=== PATIENT | male | born 1955 ===

== ENCOUNTER 2022-05-25 09:42 | Emergency (ER) | payer MEDICARE, SELFPAY ==
--- NOTE | 2022-05-25 09:44 | ED.WOUNDLAC ---
HPI - Wound/Laceration General Chief Complaint: Wound/Laceration Stated Complaint: Right Finger Laceration Time Seen by Provider: 05/25/22 09:54 Source: patient and RN notes reviewed Mode of arrival: ambulatory Limitations: no limitations History of Present Illness HPI narrative: 66-year-old male presents to the [facility] with a laceration to his right fifth finger lateral aspect. Avulsion of skin noted. Cut it on a circular saw approximately an hour prior to arrival. Has been holding direct pressure. Unable to get his bleeding to stop. 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 Currently on Plavix and baby aspirin a day Onset (ago): hour(s) Place: home Patient tetanus UTD: Yes (2021) Related Data Home Medications Medication Instructions Recorded Confirmed aspirin 81 mg tablet 81 mg PO DAILY 05/25/22 05/25/22 clopidogrel 75 mg tablet (Plavix) 75 mg PO DAILY 05/25/22 05/25/22 famotidine 20 mg tablet 20 mg PO DAILY 05/25/22 05/25/22 rosuvastatin 5 mg tablet (Crestor) 5 mg PO DAILY 05/25/22 05/25/22 simvastatin 5 mg tablet 5 mg PO DAILY 05/25/22 05/25/22 Allergies Allergy/AdvReac Type Severity Reaction Status Date / Time No Known Allergies Allergy Verified 05/25/22 09:54 Review of Systems Review of Systems: All systems reviewed & are unremarkable except as noted in HPI and below Constitutional: Constitutional: Reports no additional constitutional complaints, Denies chills and Denies fever(s) Eyes: Eyes: Reports no additional eye complaints ENT: Reports system reviewed and no additional complaints, except as documented Cardiovascular: Cardiovascular: Reports no additional cardiovascular complaints Respiratory: Respiratory: Reports no additional respiratory complaints Gastrointestinal: Gastrointestinal: Reports no additional gastrointestinal complaints Musculoskeletal: Musculoskeletal: Reports as per HPI Integumentary/Breasts: Skin/Breast: Reports as per HPI and Reports wounds (lateral right 5th finger) Neurologic: Reports system reviewed and no additional complaints, except as documented Psychiatric: Psychiatric: Reports no additional psychiatric complaints Allergic/Immunologic: Allergic/Immunologic: Reports no additional allergic/immunologic complaints [facility] Past Medical History Medical History (Updated 05/25/22 @ 10:14 by Yasmin Childers APRN) Appendicitis H/O gastroesophageal reflux (GERD) High cholesterol Myocardial infarction 2004, Surgical History Surgical History (Updated 05/25/22 @ 10:15 by Yasmin Childers APRN) Hx of appendectomy Social History Social History (Updated 05/25/22 @ 10:15 by Yasmin Childers APRN) Living arrangements: with family Gender identity (if verbalized by the patient): Male Comments At the time of my signature, I reviewed and agree with the nursing past medical, surgical, social, and family history. There is no relevant family history pertinent to the patient complaint. Exam Const: General: healthy appearing, no acute distress and alert Nutritional Appearance: well nourished Orientation/consciousness: patient oriented x3 Limitations: no limitations HENMT: Head: normal to inspection Ears: external ears normal General nose exam: Normal external nose present Face and sinus: normal facial exam Eyes: General: appearance normal, both eyes and all related structures Pupils: Equal, round and reactive pupils present Neck: Neck: normal visual inspection, no lymphadenopathy and no meningeal signs Chest: Chest palpation & inspection: normal inspection of the chest Resp: Effort & Inspection: normal respiratory effort and no use of accessory muscles Auscultation: clear to auscultation bilaterally, no crackles, no rales, no rhonchi and no wheezes Cardio: Rate: regular rate Rhythm: regular rhythm GI: GI Palp: Yes Soft to palpation and No Tenderness to palpation present (GI) Back/Spine/Pel
[2022-05-25 09:57] VITALS: BP 115/65; PULSE 68; RESP 16; TEMP 36.1; O2SAT 99
== END 2022-05-25 10:14 | disposition other institution (70) ==
PROVIDERS: Emergency Provider Nurse Practitioner; PCP Family Medicine
DX: S61.206A Unspecified open wound of right little finger without damage to nail, initial encounter (principal); W27.0XXA Contact with workbench tool, initial encounter; K21.9 Gastro-esophageal reflux disease without esophagitis; E78.00 Pure hypercholesterolemia, unspecified; I25.2 Old myocardial infarction
CPT/HCPCS: 99212; G0463